=== PATIENT | female | born 1995 | race Two or more races ===

== ENCOUNTER 2025-01-28 09:39 | Outpatient (RCR) | payer BC, SELFPAY ==
--- NOTE | 2024-12-17 09:38 | XR_ITS ---
EXAMINATION: US OB biophysical profile ORDERING PROVIDER: Carol Mercado CNM HISTORY: BIWEELY NST/BPP; GDM TECHNIQUE: Multiple transabdominal sonographic images were obtained by cytotechnologist/cytology supervisor and submitted for interpretation. COMPARISON: None. FINDINGS: FETUS: Power. PRESENTATION: Cephalic. HEART MOTION: 138 beats/min. AMNIOTIC FLUID INDEX: 10.5 cm BREATHING MOVEMENT: 2 . GROSS BODY MOVEMENT: 2 . TONE: 2 . QUALITATIVE AMNIOTIC FLUID VOLUME: 2 TOTAL BIOPHYSICAL PROFILE: 8 of 8 . IMPRESSION: Single live intrauterine gestation with biophysical profile 8 of 8.
[2024-12-17 10:11] VITALS: BP 126/77; PULSE 104; RESP 18; TEMP 36.8
--- NOTE | 2024-12-20 09:46 | XR_ITS ---
EXAMINATION: US OB biophysical profile ORDERING PROVIDER: Carol Mercado CNM HISTORY: BIWEEKLY NST/BPP; GDM TECHNIQUE: Multiple transabdominal sonographic images were obtained by chemical engineering technologist and submitted for interpretation. COMPARISON: 12/17/2024, OB biophysical FINDINGS: FETUS: Power. PRESENTATION: Cephalic. HEART MOTION: 140 beats/min. AMNIOTIC FLUID INDEX: 9.1 cm BREATHING MOVEMENT: 2 . GROSS BODY MOVEMENT: 2 . TONE: 2 . QUALITATIVE AMNIOTIC FLUID VOLUME: 2 TOTAL BIOPHYSICAL PROFILE: 8 of 8 . IMPRESSION: Single live intrauterine gestation with biophysical profile 8 of 8.
[2024-12-20 10:20] VITALS: BP 123/66; PULSE 103; RESP 16; TEMP 36.7
--- NOTE | 2024-12-24 09:22 | XR_ITS ---
Examination: Biophysical profile, ultrasound Date and time of exam: December 24, 2024 1018 hours INDICATIONS: Diagnosis gestational diabetes, diagnosis -induced hypertension Technique: Multiple transabdominal sonographic images of the pelvis abdomen obtained. Attention is directed to the breathing movement, gross body movement, amniotic fluid volume and tone. Findings: Amniotic fluid index 11.8 cm Total biophysical profile is 8 of 8. breathing movement is 2. Gross body movement is 2. tone is 2. Qualitative amniotic fluid volume is 2 Impression: Biophysical profile is 8 of 8.
[2024-12-24 10:41] VITALS: BP 123/79; PULSE 90; RESP 16; TEMP 36.7
[2024-12-27 10:23] VITALS: BP 116/59; PULSE 104; RESP 16; TEMP 36.8
--- NOTE | 2024-12-31 09:38 | XR_ITS ---
Examination: Biophysical profile, ultrasound Date and time of exam: December 31, 2024 0957 hours INDICATIONS: Diagnosis -induced hypertension, diagnosis gestational diabetes Technique: Multiple transabdominal sonographic images of the pelvis abdomen obtained. Attention is directed to the breathing movement, gross body movement, amniotic fluid volume and tone. Findings: Amniotic fluid index 14.3 cm Total biophysical profile is 8 of 8. breathing movement is 2. Gross body movement is 2. tone is 2. Qualitative amniotic fluid volume is 2 Impression: Biophysical profile is 8 of 8.
[2024-12-31 10:23] VITALS: BP 120/65; PULSE 110; RESP 16; TEMP 36.5
[2025-01-03 10:18] VITALS: BP 112/62; PULSE 107; RESP 16; TEMP 36.8
--- NOTE | 2025-01-09 09:22 | XR_ITS ---
Examination: Biophysical profile, ultrasound Date and time of exam: January 09, 2025 0934 hours INDICATIONS: Diagnosis -induced hypertension, diagnosis gestational diabetes Technique: Multiple transabdominal sonographic images of the pelvis abdomen obtained. Attention is directed to the breathing movement, gross body movement, amniotic fluid volume and tone. Findings: Amniotic fluid index 10.6 cm Total biophysical profile is 8 of 8. breathing movement is 2. Gross body movement is 2. tone is 2. Qualitative amniotic fluid volume is 2 Impression: Biophysical profile is 8 of 8.
[2025-01-09 10:26] VITALS: BP 120/77; PULSE 101; RESP 20; TEMP 36.7
--- NOTE | 2025-01-14 10:05 | XR_ITS ---
Examination: Biophysical profile, ultrasound Date and time of exam: January 14, 2025 at 1007 hrs. Indications: Diagnosis gestational diabetes, diagnosis -induced hypertension Technique: Multiple transabdominal sonographic images of the pelvis abdomen obtained. Attention is directed to the breathing movement, gross body movement, amniotic fluid volume and tone. Findings: Amniotic fluid index 10.8 cm Total biophysical profile is 8 of 8. breathing movement is 2. Gross body movement is 2. tone is 2. Qualitative amniotic fluid volume is 2 Impression: Biophysical profile is 8 of 8.
[2025-01-14 11:19] VITALS: BP 132/80; PULSE 93; RESP 16; TEMP 36.7
[2025-01-17 10:10] VITALS: BP 117/70; PULSE 101; RESP 16; TEMP 36.7
--- NOTE | 2025-01-21 10:07 | XR_ITS ---
Examination: Biophysical profile, ultrasound Date and time of exam: January 21, 2025 1031 hours INDICATIONS: Diagnosis gestational diabetes, diagnosis -induced hypertension Technique: Multiple transabdominal sonographic images of the pelvis abdomen obtained. Attention is directed to the breathing movement, gross body movement, amniotic fluid volume and tone. Findings: Amniotic fluid index 13.3 cm Total biophysical profile is 8 of 8. breathing movement is 2. Gross body movement is 2. tone is 2. Qualitative amniotic fluid volume is 2 Impression: Biophysical profile is 8 of 8.
[2025-01-21 10:52] VITALS: BP 125/80; PULSE 85; RESP 16; TEMP 36.7
[2025-01-24 10:09] VITALS: BP 121/70; PULSE 116; RESP 16
--- NOTE | 2025-01-28 09:50 | XR_ITS ---
Examination: Biophysical profile, ultrasound Date and time of exam: January 28, 2025 1019 hours INDICATIONS: Diagnosis gestational diabetes, diagnosis pelvic pain 3 days Technique: Multiple transabdominal sonographic images of the pelvis abdomen obtained. Attention is directed to the breathing movement, gross body movement, amniotic fluid volume and tone. Findings: Amniotic fluid index 12.5 cm Total biophysical profile is 8 of 8. breathing movement is 2. Gross body movement is 2. tone is 2. Qualitative amniotic fluid volume is 2 Impression: Biophysical profile is 8 of 8.
[2025-01-28 10:16] VITALS: BP 119/80; PULSE 93; RESP 18; TEMP 36.7
== END 2025-01-28 23:59 | disposition home or self-care (01) ==
LOC: S4S1 09:39
PROVIDERS: Referring Provider Nurse Practitioner Women's Health; Visit Provider Nurse Practitioner Women's Health
DX: O24.415 Gestational diabetes mellitus in pregnancy, controlled by oral hypoglycemic drugs (principal); Z3A.38 38 weeks gestation of pregnancy
CPT/HCPCS: 59025; 76819

== ENCOUNTER 2025-01-28 11:00 | Observation (INO) | payer BC, SELFPAY ==
[2025-01-28] MEDS: RINGERS LACTATED 1000 ML 1,000 ML 999 ML IV (11:05)
[2025-01-28 11:43] VITALS: BP 119/80; PULSE 93; RESP 18; RESP 98; TEMP 36.7
== END 2025-01-28 12:02 | disposition home or self-care (01) ==
PROVIDERS: Admitting Provider Obstetrics & Gynecology; Visit Provider Obstetrics & Gynecology
DX: O36.8130 Decreased fetal movements, third trimester, not applicable or unspecified (principal); Z3A.38 38 weeks gestation of pregnancy
CPT/HCPCS: 59025; 59899; J7120

== ENCOUNTER 2025-01-29 15:42 | Observation (INO) | payer BC, SELFPAY ==
[2025-01-29] VITALS (8 sets, daily range): BP systolic 131; BP diastolic 90; PULSE 110–126; RESP 16–99; TEMP 36.7; O2SAT 97–99
[2025-01-29 17:04] LABS: Collection Type, Urine Clean Catch
[2025-01-29 17:17] LABS: Basophils % (Auto) 0 % (0-2.5); Eosinophils % (Auto) 0 % (0-10); Hemoglobin 11.6 g/dL (12.0-16.0); Immature Granulocytes % (Auto) 0 % (0-0); Immature Granulocytes Auto 0.03 Thou/mm3 (0.00-0.00); Lymphocytes # (Auto) 1.9 Thou/mm3 (1.0-4.8); Lymphocytes % (Auto) 21 % (10-50); Mean Corpuscular HGB Conc 33.1 g/dl (31.0-37.0); Mean Corpuscular Hemoglobin 25.9 pg (25.0-35.0); Mean Corpuscular Volume 78 fL (80-100); Monocytes # (Auto) 0.8 Thou/mm3 (0.0-0.8); Monocytes % (Auto) 9 % (0-12); Neutrophils # (Auto) 6.3 Thou/mm3 (1.8-7.7); Neutrophils % (Auto) 69 % (37-80); Nucleated Red Blood Cell % 0 /100 WBC (0); Platelet Count 363 Thou/mm3 (140-440); RDW Standard Deviation 44.1 fL (36.4-46.3); Red Blood Count 4.48 Miln/mm3 (4.00-5.20); White Blood Count 9.1 Thou/mm3 (3.6-11.0)
[2025-01-29 17:23] LABS: Bilirubin,Urine Negative (Negative); Blood,Urine Trace (Negative); Clarity,Urine Clear (Clear/Hazy); Color,Urine Yellow (Lt Yel-Yel); Glucose, Urine Negative (Negative); Ketones,Urine Negative (Negative); Leukocyte Esterase,Urine Negative (Negative); Nitrite,Urine Negative (Negative); PH,Urine 6.5 (5.0-7.0); Protein,Urine 1+ (Neg - Trace); RBC,Urine 10 /hpf (0-3); Specific Gravity,Urine 1.031 (1.001-1.035); Squamous Epithelial Cell,Urine 7 /hpf (0-5); WBC,Urine 3 /hpf (0-5)
[2025-01-29 17:40] LABS: INR 0.9 (0.9-1.3); Partial Thromboplastin Time 26.5 Seconds (22.0-36.0); Prothrombin Time 10.4 Seconds (9.0-12.2)
[2025-01-29 18:01] LABS: Alanine Aminotransferase 143 U/L (10-49); Albumin, Serum 3.9 gm/dL (3.5-5.0); Albumin/Globulin Ratio 1.3 (1.2-2.2); Alkaline Phosphatase 195 U/L (46-116); Anion Gap 10 (7-16); Aspartate Amino Transferase 85 U/L (0-34); BUN/Creatinine Ratio 11 Ratio (12-20); Bilirubin,Total 0.3 mg/dL (0.3-1.2); Blood Urea Nitrogen 8 mg/dL (9-23); Calcium 9.3 mg/dL (8.3-10.6); Calcium (Corrected) 9.4 mg/dL (8.5-10.1); Carbon Dioxide 18.4 mMol/L (20.0-31.0); Chloride 111 mMol/L (98-107); Creatinine (Component) 0.7 mg/dL (0.6-1.3); Globulin 3.1 gm/dL (2.3-3.5); Glucose 68 mg/dL (74-106); Osmolality,Calculated 273 (275-295); Potassium 3.6 mMol/L (3.4-5.1); Sodium 139 mMol/L (136-145); Uric Acid 6.4 mg/dL (3.1-7.8); eGFR > 60 See Note
== END 2025-01-29 18:15 | disposition home or self-care (01) ==
PROVIDERS: Admitting Provider Obstetrics & Gynecology; Visit Provider Obstetrics & Gynecology
DX: Z34.83 Encounter for supervision of other normal pregnancy, third trimester (principal); Z3A.38 38 weeks gestation of pregnancy
CPT/HCPCS: 36415; 59899; 80053; 81001; 84550; 85025; 85610; 85730

== ENCOUNTER 2025-01-30 09:38 | Inpatient (IN) | payer BC, SELFPAY ==
[2025-01-30] VITALS (202 sets, daily range): BP systolic 0–154; BP diastolic 0–101; PULSE 64–118; RESP 18–98; TEMP 36.2–36.8; O2SAT 96–100; BMI 41.3
--- NOTE | 2025-01-30 10:46 | PD.LDHP ---
Documentation for date of: 01/30/25 OB Labor/Induct. HPI History of Present Illness Chief complaint: 29 y/o 38w 2d presents for elevated BPs and admitted for IOL : 2 Para: 1 Term pregnancies: 1 pregnancies: 0 Living children: 1 History of Abortions: Spontaneous and Elective: 0 History of sections: No History of : No CASSIDY: 02/11/25 Gestational Age (weeks): 38 Gestational Age (days): 2 Indication for induction: medical complication History of present illness: 29 y/o 38w 2d presents for elevated BPs. Pt was sent to L&D yesterday for elevated BPs, pt was evaluated, and was sent home by the on-call MD. Dr. Farfan and myself were not on yesterday. However today we noted that pt did have elevated AST and ALT yesterday. Pt reports all her BPs after discharged home were elevated, mostly diastolic BPs. Pt's has been complicated by CHTN on labetalol 200 BID, pt also has GDM on oral metformin, anemia on iron, and morbid obesity with BMI 38. Pt's BP was controlled with medication until yesterday. Pt's BS logs have all been normal with Metformin. Pt's last sono was on 01/10/25: Community sono SIUP 34w 2d , growth at 32%ile, EFW 2528g, CHIP is normal, no VSD seen today. Interventricular septum was suboptimal. Cephalic, Placenta anterior, no previa, BPP 8/8. Pt has also been coming in for biweekly NST/BPP which all have been normal. However today BPS are in the severe range and pt was admitted due to even higher LFTs today with symptoms of preeclampsia. Pt has been admitted for preeclampsia with severe features. GBS is neg. EFW as of today is 3200g History of Present Dating criteria: LMP confirmed by 1st trimester US Adequate Care: Yes Ultrasounds: normal 1st trimester US and normal mid trimester US Obstetrical complications: gestational diabetes, gestational hypertension and other (Obesity ) Medical complications: other (Anemia ) Labs Maternal Blood Type: O Pos Labs: Negative: RPR, Hepatitis B, Rubella Titre, HIV, Chlamydia, Gonorrhea and Group Beta Strep and Unknown: Herpes Type 1, Herpes Type 2 and Covid-19 Review of Systems Review of Systems Systems Reviewed: All systems reviewed, normal except as documented Past Medical History Surgical History SURGICAL: Negative Section Meds Home Medications and Allergies Home Medications ?Medication ?Instructions ?Recorded ?Confirmed ?Type ferrous sulfate 325 mg (65 mg mg 01/29/25 History iron) tablet labetalol 200 mg tablet 200 mg PO .once am 01/29/25 01/30/25 History metformin 500 mg tablet 500 mg PO BID 01/29/25 01/30/25 History vits no.126-ferrous fum 1 tab PO DAILY 01/29/25 01/30/25 History 28 mg iron-folic acid 800 mcg tablet (Classic ) Allergies Allergy/AdvReac Type Severity Reaction Status Date / Time aspirin Allergy Severe Anaphylaxis Verified 01/30/25 09:46 azithromycin Allergy Severe RASH Verified 01/30/25 09:46 Penicillins Allergy Mild RASH Verified 01/30/25 09:46 amoxicillin Allergy Unknown Verified 01/30/25 09:46 atropine Allergy Unknown Verified 01/30/25 09:46 hyoscyamine Allergy Unknown Verified 01/30/25 09:46 phenobarbital Allergy Unknown Verified 01/30/25 09:46 scopolamine Allergy Unknown Verified 01/30/25 09:46 OB Exam Physical Exam Vital signs: Temp Pulse Resp BP Pulse Ox 97.2 F 95 18 141/98 H 98 01/30/25 09:57 01/30/25 10:42 01/30/25 09:57 01/30/25 10:42 01/30/25 10:26 Constitutional Constitutional: no acute distress Routine HEENT Exam Head: Present normocephalic and atraumatic Eye: Present EOMI, PERRL and normal accommodation ENT: Present mucous membranes moist Routine Neck Exam Neck: Present supple, full ROM and trachea midline Routine Respiratory Exam Respiratory: Absent respiratory distress Routine Cardiovascular Exam Cardiovascular: Present RRR Routine Abdominal Exam Abdominal: Present soft and normoactive bowel sounds Comments: Gravid Uterus EFW 3200g Routine Exam External: Present normal urethra appearance; Absent lesions Detailed Labor and Delivery Exam Dilation (cm): 1 Effacement (%): thick Cervix position: posterior station: -3 Consistency: soft Membranes: intact Baseline heart rate: 130 monitor accelerations: 15x15 monitor decelerations: None nursing home variability: Moderate (11-25) Contraction frequency (min): occasional Routine Extremities Exam Extremities: Present full ROM Routine Back/Spine/Pelvis Exam Back/Spine: Present full ROM Routine Skin Exam Skin: Present intact, dry and warm Routine Neurological Exam Neurological: Present alert, oriented X3 and CN II-XII intact Routine Psychiatric Exam Psychiatric: Present normal affect and normal thought process OB Results Labs 01/30/25 10:40 01/30/25 10:40 OB Assessment & Plan Assessment and Plan (1) Pre-eclampsia, severe, third trimester: Status: Acute (2) Encounter for induction of labor: Status: Acute (3) Chronic hypertension during , antepartum: Status: Acute (4) Gestational diabetes mellitus (GDM): Status: Acute (5) Obesity (BMI 30-39.9): Status: Acute (6) Anemia affecting in third trimester: Status: Acute (7) with 38 completed weeks gestation: Status: Acute (8) Rubella non-immune status, antepartum: Status: Acute Additional Plan Induction method: per misoprostol protocol Plan: induction, anticipate NVD and consult prn Additional Plan Comment: Routine admit orders PIH labs ordered Continue labetalol 200 mg BID Start Magnesium per protocol Only on Ice Chips Consult anesthesia for an epidural Co-manage with Dr. Farfan (4) Gestational diabetes mellitus (GDM) Qualifiers: Gestational diabetes mellitus control: diet-controlled Trimester: third trimester Qualified Code(s): O24.410 - Gestational diabetes mellitus in , diet controlled
[2025-01-30 11:07] LABS: Basophils % (Auto) 0 % (0-2.5); Eosinophils % (Auto) 0 % (0-10); Hemoglobin 11.3 g/dL (12.0-16.0); Immature Granulocytes % (Auto) 0 % (0-0); Immature Granulocytes Auto 0.03 Thou/mm3 (0.00-0.00); Lymphocytes # (Auto) 1.8 Thou/mm3 (1.0-4.8); Lymphocytes % (Auto) 24 % (10-50); Mean Corpuscular HGB Conc 34.2 g/dl (31.0-37.0); Mean Corpuscular Hemoglobin 26.1 pg (25.0-35.0); Mean Corpuscular Volume 76 fL (80-100); Monocytes # (Auto) 0.5 Thou/mm3 (0.0-0.8); Monocytes % (Auto) 7 % (0-12); Neutrophils # (Auto) 5.2 Thou/mm3 (1.8-7.7); Neutrophils % (Auto) 69 % (37-80); Nucleated Red Blood Cell % 0 /100 WBC (0); Platelet Count 313 Thou/mm3 (140-440); Red Blood Count 4.33 Miln/mm3 (4.00-5.20); White Blood Count 7.5 Thou/mm3 (3.6-11.0)
[2025-01-30] MEDS: RINGERS LACTATED 1000 ML 1,000 ML 100 ML IV ×2 (11:09→21:05)
[2025-01-30 11:20] LABS: Creatinine,Random Urine 229 mg/dL (30-125); Protein Total, Random Urine 90 mg/dL (1-14)
[2025-01-30 11:30] LABS: INR 0.9 (0.9-1.3); Partial Thromboplastin Time 25.3 Seconds (22.0-36.0); Prothrombin Time 10.3 Seconds (9.0-12.2)
--- NOTE | 2025-01-30 11:32 | XR_ITS ---
Examination: age Limited TECHNIQUE: Limited transabdominal sonographic images pelvis Exam date and time: January 30, 2025 11:55 AM INDICATIONS: Labor induction today, with pelvic contractions FINDINGS: Viable intrauterine gestation cephalic presentation Cardiac motion 157 BPM Estimated weight 3061 g Estimated gestational age 36 weeks 4 days IMPRESSION: Viable intrauterine gestation cephalic presentation
[2025-01-30 11:34] LABS: Fibrinogen 632 mg/dL (175-375)
[2025-01-30 11:41] LABS: Alanine Aminotransferase 152 U/L (10-49); Albumin, Serum 3.8 gm/dL (3.5-5.0); Albumin/Globulin Ratio 1.3 (1.2-2.2); Alkaline Phosphatase 190 U/L (46-116); Anion Gap 11 (7-16); Aspartate Amino Transferase 94 U/L (0-34); BUN/Creatinine Ratio 13 Ratio (12-20); Bilirubin,Total 0.4 mg/dL (0.3-1.2); Blood Urea Nitrogen 8 mg/dL (9-23); Calcium 8.8 mg/dL (8.3-10.6); Carbon Dioxide 19.9 mMol/L (20.0-31.0); Chloride 109 mMol/L (98-107); Creatinine (Component) 0.6 mg/dL (0.6-1.3); Estimated Creatinine Clearance 221.8 mL/min (>60); Globulin 2.9 gm/dL (2.3-3.5); Glucose 83 mg/dL (74-106); LDH (Lactate Dehydrogenase) 188 U/L (120-246); Osmolality,Calculated 276 (275-295); Potassium 3.6 mMol/L (3.4-5.1); Sodium 140 mMol/L (136-145); Total Protein 6.7 gm/dL (5.7-8.2); Uric Acid 6.5 mg/dL (3.1-7.8); eGFR > 60 See Note
[2025-01-30 11:51] LABS: Syphilis Nonreactive (Nonreactive)
[2025-01-30] MEDS: NIFEdipine XL 30 MG TABCR PO (12:24)
[2025-01-30] MEDS: Magnesium Sulfate 2 GM Ivpb 2 GM/50 ML BAG IV (12:26)
[2025-01-30] MEDS: Magnesium Sulfate 4 GM Ivpb 4 GM/50 ML BAG IV (12:38)
[2025-01-30] MEDS: MAGNESIUM SULF 20 GM IVPB 20 GM/500 ML BAG IV (13:19)
[2025-01-30] MEDS: MISOPROSTOL 50 mCg TABLET PO ×3 (13:20→21:30)
--- NOTE | 2025-01-30 17:58 | PD.LDPN ---
Documentation for date of: 01/30/25 OB Labor Progress Note Pain Control Pain control: tolerating well Pelvic Exam Dilation (cm): 1 Effacement (%): thick station: -3 Contractions Monitor mode: External Contraction frequency: occasional Status status: Category l Assessment and Plan Assessment: induction ongoing Plan OB labor note: continuous present management Comments: Clear diet Pt had 2 doses of cytotec continue to all 4 doses will reassess after the 4th dose BP well managed Continue to monitor closely Dr. Farfan updated
[2025-01-30] MEDS: LABETALOL 100 MG TABLET 200 MG PO (21:30)
[2025-01-30 21:47] LABS: Magnesium 4.7 mg/dL (1.6-2.6)
[2025-01-30] MEDS: RINGERS LACTATED 1000 ML 1,000 ML 999 ML IV (23:56)
[2025-01-31] VITALS (152 sets, daily range): BP systolic 0–157; BP diastolic 0–101; PULSE 79–135; RESP 12–20; TEMP 36.4–37.2; O2SAT 92–100
[2025-01-31] MEDS: MAGNESIUM SULF 20 GM IVPB 20 GM/500 ML BAG IV ×3 (00:47→23:18)
[2025-01-31] MEDS: RINGERS LACTATED 1000 ML 1,000 ML 999 ML IV (00:58)
[2025-01-31] MEDS: OXYTOCIN in NS 30 units 30 UNIT/500 ML BAG IV (02:00)
[2025-01-31 03:06] LABS: Magnesium 4.8 mg/dL (1.6-2.6)
--- NOTE | 2025-01-31 04:56 | PD.LDPN ---
Documentation for date of: 01/31/25 OB Labor Progress Note Pain Control Pain control: epidural Pelvic Exam Dilation (cm): 10 Effacement (%): 100 station: +2 Amniotic membrane status: Ruptured (Clear) Contractions Monitor mode: External Contraction frequency: 2-3 Contraction duration: 40-60 Contraction phase: Contraction Contraction intensity: Strong Status status: Category l Assessment and Plan Assessment: other (2nd stage) Plan OB labor note: other (actively push) Comments: AROM performed- clear fluids Anticipate
[2025-01-31] MEDS: MINERAL OIL 30 ML UDC TOP (05:13)
--- NOTE | 2025-01-31 05:38 | PD.LDDELS ---
Data (Power) Data Hx Section: No Maternal Blood Type: O Pos Rubella Titre: Negative RPR: Non-reactive Labs: Negative: RPR, Hepatitis B, HIV, Chlamydia, Gonorrhea and Group Beta Strep and Unknown: Herpes Type 1 and Herpes Type 2 : 2 Para: 1 Term: 1 : 0 Livin : 0 Delivery Data (Power) Labor Data Stimulated/Augmented: No Induction: Yes Method: Cytotec ROM Date: 01/31/25 ROM Time: 04:54 Rupture Type: AROM Amniotic Fluid: Clear Delivery Data EDC: 02/11/25 EDC calculated by:: LMP/early US confirmation Labor Onset Stage 1 Date: 01/30/25 Labor Onset Stage 1 Time: 22:30 Labor Onset Stage 2 Date: 01/31/25 Labor Onset Stage 2 Time: 04:07 Delivery Date: 01/31/25 Delivery Time: 05:15 Gestational age (weeks): 38 Gestational age (days): 3 Placenta Delivery Date: 01/31/25 Placenta Delivery Time: 05:19 Delivered by: Carol Mercado Delivery nurse: Colleen Aranda Garment Presser at delivery: No Support person(s) at delivery: FOB Other staff at delivery: 2nd Nurse Other staff at delivery: Darcy Murphy Delivery Method Delivery: Vaginal Delivery Type: Spontaneous Presentation: Vertex Position: OA Anesthesia Type Primary Anesthesia: Epidural Delivery Room Medications Other Intrapartum Medications: No Post Delivery Medications N/A: No Placenta Placenta Delivery: Spontaneous Placenta Cultures Obtained: No Placenta Sent for Examination: No Cord Sample: Cord Blood Obtained Episiotomy Episiotomy: None Lacerations #1: Vaginal: 1st degree Perineal repair Sutures used for repair: 3.0 Vicryl (CT) EBL Estimated blood loss (ml): 200 Umbilical Cord Umbilical Vessels: 3 Nuchal Cord: None Body Cord: None Additional Procedures CNM called in when pt was complete, upon arrival pt still had a bulging bag, so AROM performed with clear fluids noted. Pt was then set up for delivery and after a few pushes had an of a viable female infant delivered. Infant's shoulder delivered with gentle downward traction, subsequent delivery of the posterior shoulder and the body without complications. Infant placed on mother's abdomen. Vigorous cry upon delivery. Cord was clamped then cut by FOB. Cord blood obtained. 3-vessel cord noted. Placenta expelled spontaneously and intact. 1st deg vaginal laceration noted, repaired using 3.[address] Excellent hemostasis achieved after a vigorus fundal massage and removal of clots from the posterior fornix. EBL 200. Sponge and needle count correct. Mother and baby stable, skin to skin and bonding in LDR. Pt will continue magnesium for 24 hours post delivery. [place] Data (Power) [place] Data Infant Gender: Female Infant Weight Grams: 3175 1 Minute Total: 8 5 Minute Total: 9
[2025-01-31] MEDS: BENZO/LANO/ALOE (Dermoplast) 60 GM CAN 1 SPRAY TOP (05:45)
[2025-01-31] MEDS: ACETAMINOPHEN 325 MG TABLET 650 MG PO ×3 (06:23→17:51)
[2025-01-31] MEDS: OXYTOCIN in NS 20 units 20 UNIT/1,000 ML BAG 125 UNIT IV (08:24)
[2025-01-31] MEDS: NIFEdipine XL 30 MG TABCR PO (09:34)
[2025-01-31] MEDS: LABETALOL 100 MG TABLET 200 MG PO ×2 (09:34→21:55)
[2025-01-31] MEDS: DOCUSATE SOD 100 MG CAPSULE PO (09:34)
[2025-01-31 09:54] LABS: Magnesium 4.6 mg/dL (1.6-2.6)
[2025-01-31 12:22] LABS: Basophils % (Auto) 0 % (0-2.5); Eosinophils % (Auto) 0 % (0-10); Hematocrit 32.5 % (36.0-46.0); Hemoglobin 10.7 g/dL (12.0-16.0); Immature Granulocytes % (Auto) 0 % (0-0); Immature Granulocytes Auto 0.05 Thou/mm3 (0.00-0.00); Lymphocytes # (Auto) 1.6 Thou/mm3 (1.0-4.8); Lymphocytes % (Auto) 13 % (10-50); Mean Corpuscular HGB Conc 32.9 g/dl (31.0-37.0); Mean Corpuscular Hemoglobin 26.6 pg (25.0-35.0); Mean Corpuscular Volume 81 fL (80-100); Monocytes # (Auto) 0.7 Thou/mm3 (0.0-0.8); Monocytes % (Auto) 6 % (0-12); Neutrophils % (Auto) 81 % (37-80); Nucleated Red Blood Cell % 0 /100 WBC (0); Platelet Count 310 Thou/mm3 (140-440); RDW Standard Deviation 45.9 fL (36.4-46.3); Red Blood Count 4.02 Miln/mm3 (4.00-5.20); White Blood Count 12.3 Thou/mm3 (3.6-11.0)
[2025-01-31 18:30] LABS: Magnesium 4.5 mg/dL (1.6-2.6)
[2025-01-31 21:41] LABS: Magnesium 4.2 mg/dL (1.6-2.6)
[2025-01-31] MEDS: RINGERS LACTATED 1000 ML 1,000 ML 75 ML IV (22:48)
[2025-02-01 01:43] VITALS: BP 127/86; PULSE 79; RESP 16; TEMP 36.6; O2SAT 98
[2025-02-01 02:26] VITALS: BP 127/83; PULSE 82; RESP 16; TEMP 36.6; O2SAT 98
[2025-02-01] MEDS: ACETAMINOPHEN 325 MG TABLET 650 MG PO (02:33)
[2025-02-01 02:59] LABS: Magnesium 4.4 mg/dL (1.6-2.6)
[2025-02-01 03:31] VITALS: BP 131/84; PULSE 80; RESP 18; TEMP 36.6; O2SAT 96
[2025-02-01 04:13] VITALS: BP 124/83; PULSE 79; RESP 16; TEMP 36.6; O2SAT 97
--- NOTE | 2025-02-01 07:18 | PD.LDDS ---
DS: Providers Provider Date of admission: 01/30/25 10:20 Primary care physician: Physician No Primary/Family Admitting Provider: Alberto Farfan MD Attending Provider on Admission: Carol Mercado CNM Consults: 01/31/25 06:09 Referral Routine Comment: Attending Provider on DC: Carol Mercado CNM Discharging Provider: Carol Mercado CNM Anticipated date of discharge: 02/01/25 DS: Diagnosis Discharge Diagnosis (1) Normal spontaneous vaginal delivery: Status: Acute (2) Encounter for care of lactating mother: Status: Acute (3) Pre-eclampsia, severe, third trimester: Status: Acute (4) Rubella nonimmune status, delivered, current hospitalization: Status: Acute (5) Anemia affecting in third trimester: Status: Acute (6) Gestational diabetes mellitus (GDM): Status: Acute (7) Encounter for induction of labor: Status: Acute Problem List Completed Was Problem List Reviewed/Reconciled?: Yes Summary/Hosp Course Brief History: 29 y/o 38w 2d presents for elevated BPs. Pt was sent to L&D yesterday for elevated BPs, pt was evaluated, and was sent home by the on-call MD. Dr. Farfan and myself were not on yesterday. However today we noted that pt did have elevated AST and ALT yesterday. Pt reports all her BPs after discharged home were elevated, mostly diastolic BPs. Pt's has been complicated by CHTN on labetalol 200 BID, pt also has GDM on oral metformin, anemia on iron, and morbid obesity with BMI 38. Pt's BP was controlled with medication until yesterday. Pt's BS logs have all been normal with Metformin. Pt's last sono was on 01/10/25: Community sono SIUP 34w 2d , growth at 32%ile, EFW 2528g, CHIP is normal, no VSD seen today. Interventricular septum was suboptimal. Cephalic, Placenta anterior, no previa, BPP 05/17. Pt has also been coming in for biweekly NST/BPP which all have been normal. However today BPS are in the severe range and pt was admitted due to even higher LFTs today with symptoms of preeclampsia. Pt has been admitted for preeclampsia with severe features. GBS is neg. EFW as of today is 3200g 01/31/25: CNM called in when pt was complete, upon arrival pt still had a bulging bag, so AROM performed with clear fluids noted. Pt was then set up for delivery and after a few pushes had an of a viable female infant delivered. 's shoulder delivered with gentle downward traction, subsequent delivery of the posterior shoulder and the body without complications. Infant placed on mother's abdomen. Vigorous cry upon delivery. Cord was clamped then cut by FOB. Cord blood obtained. 3-vessel cord noted. Placenta expelled spontaneously and intact. 1st deg vaginal laceration noted, repaired using 3.[address] Excellent hemostasis achieved after a vigorus fundal massage and removal of clots from the posterior fornix. EBL 200. Sponge and needle count correct. Mother and baby stable, skin to skin and bonding in LDR. Pt will continue magnesium for 24 hours post delivery. 02/01/25: PPD#1 patient is stable and afebrile was on mag for 24 hours was DC'd early this morning. BPs have been under control. Denies dizziness shortness of breath. Ambulating to the bathroom already has voided. Uterus is nontender fundus firm minimal lochia. Eager to go home. Discharge instructions given. Patient to follow-up with Carol Mercado CNM next week for blood pressure check patient will go home with BP meds as well. Peripartum Data Delivery Method: Normal Vaginal Delivery Episiotomy Description: None Laceration Description: yes and see Delivery Summary complications: none [place] 1: Gender: Female Disposition of : home Status at Discharge Cognitive/behavioral status at discharge: Alert and oriented x 3 Functional status at discharge: independent ambulation Overall status at discharge: patient is progressing back to baseline Time Spent with Patient Time attestation: Total time spent providing and/or coordinating discharge services: Time spent: Greater than 30 minutes Exam Vital Signs Temp Pulse Resp BP Pulse Ox O2 Del Method 97.6 F 87 17 144/91 H 100 Room Air 01/31/25 17:51 01/31/25 18:00 01/31/25 18:00 01/31/25 18:00 01/31/25 18:00 01/31/25 18:00 Constitutional Constitutional: no acute distress Routine HEENT Exam Head: Present normocephalic and atraumatic Eye: Present EOMI, PERRL and normal accommodation ENT: Present mucous membranes moist Routine Neck Exam Neck: Present supple, full ROM and trachea midline Routine Respiratory Exam Respiratory: Present chest non-tender, lungs clear, normal breath sounds and no resp distress Routine Cardiovascular Exam Cardiovascular: Present RRR Routine Abdominal Exam Abdominal: Present soft and normoactive bowel sounds; Absent tenderness or distended Comments: Uterus nontender Fundus firm Routine Exam Patient deferred: external exam Routine Extremities Exam Extremities: Present full ROM, pulses intact and normal capillary refill; Absent calf tenderness or tenderness Routine Back/Spine/Pelvis Exam Back/Spine: Present full ROM Routine Skin Exam Skin: Present intact, dry and warm Routine Neurological Exam Neurological: Present alert, oriented X3 and CN II-XII intact Routine Psychiatric Exam Psychiatric: Present normal affect and normal thought process Discharge Plan Plan Patient Disposition: HOME (Self Care) Patient condition on transfer: Stable Prescriptions/Referrals Prescriptions/Med Rec: New docusate sodium [Colace] 100 mg capsule 100 mg PO BID Qty: 60 0RF lanolin 50 % ointment 1 applic topical TID PRN (Reason: skin irritation) Qty: 15 0RF acetaminophen 650 mg tablet extended release 650 mg PO Q8H PRN (Reason: fever or pain) 30 Days Qty: 90 0RF labetalol 200 mg tablet 200 mg PO BID Qty: 60 0RF Continued labetalol 200 mg tablet 200 mg PO .once am Patient Comments: TAKE 2 TABLETS ORALLY TWICE A DAY FOR 30 DAYS ferrous sulfate 325 mg (65 mg iron) tablet Patient Comments: TAKE 1 TABLET BY MOUTH TWICE A DAY 30 DAYS Discontinued folic acid 1 mg tablet Patient Comments: TAKE 1 TABLET BY MOUTH EVERY DAY No Action metformin 500 mg tablet 500 mg PO BID Classic 28 mg iron- 800 mcg tablet 1 tab PO DAILY Patient Comments: TAKE 1 TABLET BY MOUTH EVERY DAY Referrals: No Primary/Family,Physician [Primary Care Provider] - Patient/Caregiver Discharge Instructions Meds to Beds: No Discharge Activity: activity as tolerated Other Discharge Activity Instructions:: Follow-up with Carol Mercado CNM in 3 days for BP check and continue labetalol [id number] BID [facility] over the right Education Materials: After a Vaginal , : Caring for Yourself Print Language: Dominican Stand Alone Forms: [facility]ie Award Info., Patient Portal Info Letter Vaccines Vaccines Given During Stay: MMR Discharge Order Discharge Orders: Discharge (Routine); Ordered 02/01/25 Ordered By: Carol Mercado Planned Discharge Date 02/01/25 (6) Gestational diabetes mellitus (GDM) Qualifiers: Gestational diabetes mellitus control: diet-controlled Trimester: third trimester Qualified Code(s): O24.410 - Gestational diabetes mellitus in , diet controlled
[2025-02-01 08:00] VITALS: BP 148/89; PULSE 82; RESP 17; TEMP 36.6; O2SAT 97
[2025-02-01] MEDS: MEASLES, MUMPS & RUBELLA VACC 0.5 ML VIAL SCi (09:02)
[2025-02-01 09:03] VITALS: BP 148/89; PULSE 82
[2025-02-01] MEDS: LABETALOL 100 MG TABLET 200 MG PO (09:03)
[2025-02-01] MEDS: NIFEdipine XL 30 MG TABCR PO (09:03)
[2025-02-01] MEDS: DOCUSATE SOD 100 MG CAPSULE PO (09:04)
== END 2025-02-01 10:45 | disposition home or self-care (01) | DRG 807 ==
LOC: S4SX 01-31 05:31 → S4NX 01-31 08:26
PROVIDERS: Admitting Provider Student in an Organized Health Care Education/Training Program; Visit Provider Nurse Practitioner Women's Health
DX: O11.4 Pre-existing hypertension with pre-eclampsia, complicating childbirth (principal); Z37.0 Single live birth; Z3A.38 38 weeks gestation of pregnancy; O99.214 Obesity complicating childbirth; E66.01 Morbid (severe) obesity due to excess calories; O24.425 Gestational diabetes mellitus in childbirth, controlled by oral hypoglycemic drugs; O99.02 Anemia complicating childbirth; O70.0 First degree perineal laceration during delivery; Z23 Encounter for immunization; Z79.899 Other long term (current) drug therapy; Z78.9 Other specified health status
CPT/HCPCS: 36415; 59025; 59409; 76815; 80053; 82570; 83615; 83735; 84156; 84550; 85025; 85384; 85610; 85730; 86780; 86850; 86870; 86900; 86901; 90707; 94762; J2590; J2795; J3010; J3475; J7120; A9270

== ENCOUNTER → 2025-02-06 | Outpatient (CLI) | payer BC, SELFPAY ==
[2025-02-06 14:37] LABS: Influenza A Ag Negative; Influenza B Ag Negative; Respiratory Syncytial Virus Ag Negative (Negative); Strep A Rapid Negative (Negative)
[2025-02-07 09:06] LABS: COVID-19 Confirmatory PCR Negative (Neg)
== END | disposition home or self-care (01) ==
LOC: COPL 13:26
PROVIDERS: PCP Nurse Practitioner Family; Referring Provider Registered Nurse; Visit Provider Registered Nurse
DX: J02.9 Acute pharyngitis, unspecified (principal)
CPT/HCPCS: 87070; 87502; 87634; 87635; 87651

== ENCOUNTER → 2025-05-16 | Outpatient (CLI) | payer BC, SELFPAY ==
[2025-05-16 14:28] LABS: Basophils # (Auto) 0.0 Thou/mm3 (0.0-0.2); Basophils % (Auto) 1 % (0-2.5); Eosinophils # (Auto) 0.1 Thou/mm3 (0.0-0.5); Eosinophils % (Auto) 2 % (0-10); Hematocrit 36.0 % (36.0-46.0); Hemoglobin 11.5 g/dL (12.0-16.0); Immature Granulocytes Auto 0.01 Thou/mm3 (0.00-0.00); Lymphocytes # (Auto) 2.3 Thou/mm3 (1.0-4.8); Lymphocytes % (Auto) 34 % (10-50); Mean Corpuscular HGB Conc 31.9 g/dl (31.0-37.0); Mean Corpuscular Hemoglobin 26.3 pg (25.0-35.0); Mean Corpuscular Volume 82 fL (80-100); Monocytes # (Auto) 0.5 Thou/mm3 (0.0-0.8); Monocytes % (Auto) 7 % (0-12); Neutrophils # (Auto) 3.8 Thou/mm3 (1.8-7.7); Neutrophils % (Auto) 56 % (37-80); Nucleated Red Blood Cell # 0.00 Thou/mm3 (0.00-0.00); Nucleated Red Blood Cell % 0 /100 WBC (0); Platelet Count 402 Thou/mm3 (140-440); RDW Standard Deviation 46.4 fL (36.4-46.3); Red Blood Count 4.37 Miln/mm3 (4.00-5.20); White Blood Count 6.7 Thou/mm3 (3.6-11.0)
[2025-05-16 14:37] LABS: Glucose Estimated Average 111 mg/dL (80-131); Hemoglobin A1C 5.5 % Hgb (4.8-6.0)
[2025-05-16 14:42] LABS: Glucose, Fasting 90 mg/dL (74-106)
[2025-05-16 14:49] LABS: Cardiac Risk Estimate 2.7 RATIO (3.7-5.6); Cholesterol 138 mg/dL (132-200); HDL Cholesterol 52 mg/dL (40-60); LDL Cholesterol,Calculated 73 mg/dL (0-130); Thyroid Stimulating Hormone 1.10 uIU/mL (0.55-4.78); Triglycerides 67 mg/dL (30-150)
[2025-05-16 16:18] LABS: Glucose 1 Hour 151 mg/dL (120-170)
[2025-05-16 16:20] LABS: Glucose 1/2 Hour 138 mg/dL (110-170)
== END | disposition home or self-care (01) ==
LOC: COPL 13:42
PROVIDERS: PCP Nurse Practitioner Family; Referring Provider Nurse Practitioner Family; Visit Provider Nurse Practitioner Family
DX: Z00.00 Encounter for general adult medical examination without abnormal findings (principal); I10 Essential (primary) hypertension; O24.439 Gestational diabetes mellitus in the puerperium, unspecified control
CPT/HCPCS: 36415; 80061; 81001; 82043; 82570; 82950; 82951; 83036; 84443; 85025